=== PATIENT | female | born 1980 | race Caucasian/White ===

== ENCOUNTER 2019-08-13 01:06 | Emergency (ER) | payer BC, OTHER ==
--- NOTE | 2019-08-13 01:45 | EDM.PDOC ---
ED HPI GENERAL MEDICAL PROBLEM - General Chief Complaint: Gastrointestinal Problem Stated Complaint: VOMITING Time Seen by Provider: 08/13/19 01:20 Source of Information: Reports: Patient History Limitations: Reports: No Limitations - History of Present Illness INITIAL COMMENTS - FREE TEXT/NARRATIVE: 39-year-old female with nausea and vomiting for the past 10 hours, watery diarrhea and low-grade fevers. She has some mild abdominal cramping and low back discomfort and feels she is getting dehydrated and just "feels awful". No respiratory symptoms other than chronic nasal stuffiness and sinus congestion, no recent antibiotics. No recent travel. She has not seen any blood in the diarrhea or emesis Onset: Sudden (Symptoms started fairly suddenly 10 hours ago) Worsens with: Reports: Other (Nausea and vomiting is worse when she tries to eat or drink) Associated Symptoms: Reports: Fever/Chills, Loss of Appetite, Malaise, Nausea/ Vomiting, Weakness. Denies: Confusion, Chest Pain, Cough, Headaches, Shortness of Breath Generalized Pain Score (Numeric/FACES): 3 - Related Data Allergies Allergy/AdvReac Type Severity Reaction Status Date / Time No Known Allergies Allergy Verified 08/13/19 01:10 Home Meds: Home Meds NK [No Known Home Meds] 02/24/16 [History] Past Medical History HEENT History: Reports: Impaired Vision Cardiovascular History: Reports: Heart Murmur Respiratory History: Reports: Pneumothorax [employer] History: Reports: Dermatologic History: Reports: Psoriasis - Infectious Disease History Infectious Disease History: Reports: Chicken Pox - Past Surgical History Female Surgical History: Reports: Section Social & Family History - Tobacco Use Smoking Status *Q: Current Every Day Smoker Years of Tobacco use: 20 Packs/Tins Daily: 1 Used Tobacco, but Quit: No Second Hand Smoke Exposure: Yes - Caffeine Use Caffeine Use: Reports: Soda - Recreational Drug Use Recreational Drug Use: No ED ROS GENERAL - Review of Systems Review Of Systems: See Below Constitutional: Reports: Fever, Chills, Malaise, Decreased Appetite HEENT: Reports: No Symptoms Respiratory: Denies: Shortness of Breath Cardiovascular: Denies: Chest Pain GI/Abdominal: Reports: Abdominal Pain, Diarrhea, Nausea, Vomiting. Denies: Hematemesis Skin: Reports: No Symptoms Neurological: Denies: Headache ED EXAM, GI/ABD - Physical Exam Exam: See Below Exam Limited By: No Limitations General Appearance: Alert, Mild Distress (Looks fairly sick, very uncomfortable) Eyes: Bilateral: Normal Appearance (Normal hydration no jaundice) Head: Atraumatic Respiratory/Chest: No Respiratory Distress, Lungs Clear Cardiovascular: Regular Rate, Rhythm. No: Tachycardia GI/Abdominal Exam: Normal Bowel Sounds, Soft. No: Tender Extremities: Normal Inspection Neurological: Alert, Oriented Psychiatric: Flat Affect Course - Vital Signs Last Recorded V/S: Last Vital Signs Temp 100 F 08/13/19 02:58 Pulse 86 08/13/19 02:58 Resp 16 08/13/19 02:58 BP 124/76 08/13/19 02:58 Pulse Ox 95 08/13/19 02:58 - Orders/Labs/Meds Labs: Laboratory Tests 08/13/19 08/13/19 Range/Units 01:48 01:48 WBC 11.9 H (4.5-11.0) K/uL RBC 5.48 (3.30-5.50) M/uL Hgb 15.6 H (12.0-15.0) g/dL Hct 47.9 (36.0-48.0) % MCV 87 (80-98) fL MCH 29 (27-31) pg MCHC 33 (32-36) % Plt Count 271 (150-400) K/uL Neut % (Auto) 91 H (36-66) % Lymph % (Auto) 3 L (24-44) % [place] % (Auto) 5 (2-6) % Eos % (Auto) 1 L (2-4) % Baso % (Auto) 0 (0-1) % Sodium 139 L (140-148) mmol/L Potassium 4.0 (3.6-5.2) mmol/L Chloride 103 (100-108) mmol/L Carbon Dioxide 19 L (21-32) mmol/L Anion Gap 21.0 H (5.0-14.0) mmol/L BUN 17 D (7-18) mg/dL Creatinine 0.9 (0.6-1.0) mg/dL Est Cr Clr Drug Dosing 86.33 mL/min Estimated GFR (MDRD) > 60 (>60) Glucose 127 H (74-106) mg/dL Calcium 9.3 (8.5-10.1) mg/dL Lipase 64 L (73-393) U/L Meds: Medications Discontinued Medications Generic Name Dose Route Start Last Admin Trade Name Freq PRN Reason Stop Dose Admin Sodium Chloride 1,000 mls @ 1,000 mls/hr 08/13/19 01:45 08/13/19 01:58 Normal Saline IV 1,000 mls/hr ASDIRECTED ADALBERTO Administration Lorazepam 1 mg 08/13/19 01:39 08/13/19 01:59 Ativan IVPUSH 08/13/19 01:40 1 mg ONETIME ONE Administration Metoclopramide HCl 5 mg 08/13/19 01:39 08/13/19 02:01 Reglan IVPUSH 08/13/19 01:40 5 mg ONETIME ONE Administration - Re-Assessments/Exams Free Text/Narrative Re-Assessment/Exam: 08/13/19 01:44 CBC, BMP and lipase were obtained, and patient was given 1 mg of Ativan, 5 mg of Reglan and a liter of normal saline. 08/13/19 02:30 Labs returned very reassuring, white count was mildly elevated at 11.9 and hemoglobin normal, BMP and lipase basically normal except for moderately elevated anion gap. Kidney function was excellent. Patient was treated with a liter of fluid over 1 hour and had no vomiting or diarrhea while in the hospital. She will be discharged with 5 doses of Zofran and can recheck in the next 24 to 48 hours if not improving. Departure - Departure Time of Disposition: 03:00 Disposition: Home, Self-Care 01 Clinical Impression: Gastroenteritis Nausea and vomiting Qualifiers: Vomiting type: unspecified Vomiting Intractability: non-intractable Qualified Code(s): R11.2 - Nausea with vomiting, unspecified - Discharge Information Instructions: Viral Gastroenteritis, Adult Referrals: PCP,None [Primary Care Provider] - Forms: ED Department Discharge Care Plan Goals: Rest tonight, drink frequent small amounts of fluid to stay hydrated and increase activity and diet as tolerated. Consider rechecking in 1 to 2 days if not improving satisfactorily. Sepsis Event Note - Evaluation Sepsis Screening Result: No Definite Risk - Focused Exam Vital Signs: Vital Signs Temp Pulse Resp BP Pulse Ox 08/13/19 02:58 100 F 86 16 124/76 95 08/13/19 01:22 101.1 F H 88 16 125/75 95 Date Exam was Performed: 08/13/19 Time Exam was Performed: 06:38
[2019-08-13] MEDS: Sodium Chloride 0.9% 1,000 ML IV SCH (01:58)
[2019-08-13] MEDS: LORazepam 2 MG/ML SDV IVPUSH ONE (01:59)
[2019-08-13] MEDS: Metoclopramide 10 MG/2 ML SDV IVPUSH ONE (02:01)
[2019-08-13 03:00] VITALS: BP 124/76; PULSE 86
== END 2019-08-13 02:59 | disposition home or self-care (01) ==
LOC: JP.ED 01:06
DX: K52.9 Noninfective gastroenteritis and colitis, unspecified (principal); F17.210 Nicotine dependence, cigarettes, uncomplicated
CPT/HCPCS: 36415; 80048; 83690; 85025; 96361; 96374; 96375; 99284; J2060; J2765; J7030